=== PATIENT | female | born 1990 | race Caucasian/White ===

== ENCOUNTER 2018-04-08 08:35 | Outpatient (CLI) | payer OTHER | END 2018-04-08 08:57 | disposition home or self-care (01) | LOC: RX STUDY 08:35 → EDBD 08:35 → RX STUDY 08:57 | DX: N70.11 Chronic salpingitis (principal) ==

== ENCOUNTER 2021-09-29 10:09 | Outpatient (CLI) | payer OTHER | END 2021-09-29 10:24 | disposition home or self-care (01) | LOC: RAD 10:09 | PROVIDERS: ATTEND Specialist | DX: N92.0 Excessive and frequent menstruation with regular cycle (principal); R10.2 Pelvic and perineal pain ==